=== PATIENT | female | born 1945 | race Caucasian/White ===

== ENCOUNTER 2016-12-16 20:39 | Emergency (ER) | payer MEDICARE ==
[~2016-12-16] VITALS: Ht 152.4 cm; Wt 70.8 kg
[~2016-12-16 20:39] MED LIST: BIOTIN1000 MCG PO; CITRACAL ULTRAD PO; CLARITIN10 MG PO; DUONEB 3 MG/3 ML3 M1 INH; EPIPEN 2-PAK1 MG/ML IJ; FISH OIL CONC1000 M1 PO; FLONASE ALLERG9.9 ML NAS; FOSAMAX10 MG PO; HCTZ/TRIAMTEREN1 CA2 PO; HYDROCHLOROTHIAZIDE PO; KEFLEX500 MG PO; LEVOFLOXACIN500 MG PO; LOVASTATIN40 MG PO; MEDROL DOSEPAK4 MG PO; NAPROXEN ER500 MG PO; NIACIN500 M1 PO; NORVASC5 MG PO; PRAVASTATIN SOD80 MG PO; PREDNISONE10 MG PO; PRILOSEC20 M1 PO; ROBITUSSIN AC 110 ML PO; TRAMADOL50 MG PO; TRIAMTERENE PO; VICODIN 5/500 505 MG PO; VITAMIN D1000 IU PO; VOLTAREN50 M1 PO; ZANTAC 150150 MG PO; ZOCOR40 MG PO
[2016-12-16 21:53] LABS: ALBUMIN 4.2 gm/dl (3.1-4.5); BILIRUBIN, TOTAL 0.7 mg/dl (0.2-1.0); POTASSIUM 2.9 mmol/L (3.5-5.1); TOTAL PROTEIN 7.7 gm/dL (6.4-8.2)
[2016-12-17] MEDS ORDERED: K-TAB20 MEQ PO (00:14)
== END 2016-12-17 00:51 | disposition home or self-care (01) ==
LOC: ED 20:39
PROVIDERS: Physician Assistant
DX: E87.6 Hypokalemia (principal); Z88.2 Allergy status to sulfonamides; Z79.899 Other long term (current) drug therapy

== ENCOUNTER 2017-10-11 17:34 | Inpatient (IN) | payer MEDICARE ==
[~2017-10-11] VITALS: Ht 152.4 cm; Wt 68.3 kg
--- NOTE | ~2017-10-11 | PR ---
[place], [place] PROGRESS NOTE [id number] UNIT #: [id number] ROOM: 402 DOCTOR: EMA MILLER MD BIRTHDATE: [birth year] DOS: 10/15/2017 SUBJECTIVE: The patient states that she feels better, who has a cough, but her shortness of breath is improved. OBJECTIVE: VITAL SIGNS: Graphic trend shows a pressure of 128/52, pulse is 62, respirations 18, temperature 98. LUNGS: Diminished breath sounds, clear. HEART: Regular. ABDOMEN: Obese, soft, nontender. EXTREMITIES: Without any edema. ASSESSMENT AND PLAN: 1. The patient who presents with increasing shortness of breath, was diagnosed with acute pneumonitis by Dr. Foster, was admitted. 2. Lactic acidosis, possibly early sepsis. Blood cultures have been negative. Sepsis has been ruled out. The patient is stable, can be discharged to home today. EMA MILLER MD CM:PNTRANS 1410 EMA MILLER MD 10/16/17 0108 interface
--- NOTE | ~2017-10-11 | DS ---
[place], [place] DISCHARGE SUMMARY [id number] UNIT #: [id number] ROOM: 402 DOCTOR: EMA MILLER MD BIRTHDATE: [birth year] DOS: 10/15/2017 DIAGNOSES: 1. Asthmatoid wheeze. 2. Sepsis, ruled out with negative cultures. 3. Pneumonitis. 4. Benign hypertension. 5. Type 2 diabetes mellitus. 6. Hyperlipidemia. 7. Chronic back pain. 8. Gastroesophageal reflux disease. DISCHARGE MEDICATIONS: Will be the same as on home medication. The new prescription added was Cipro 500 b.i.d. for 5 days and tapering dose of prednisone. HOSPITAL COURSE: The patient is 71-year-old. The patient was brought in under Dr. Foster's services with complaints of shortness of breath. Please refer H and P and the notes dictated by Dr. Foster for the last several days for details. The patient states this morning that she has improved. The cough is still persistent, but the shortness of breath has subsided and she no longer has a wheeze. Blood cultures and repeat chest x-ray have come back negative. The plan therefore is to discharge her to home for followup with Dr. Foster as an outpatient. Discharge prescriptions have been written. The patient is advised to take Mucinex at home for cough. EMA MILLER MD CM:DISCHARG [id number] EMA MILLER MD 10/15/17 2210 interface
--- NOTE | ~2017-10-11 | WRIGHTHP ---
[place], [place] PATIENT HISTORY AND PHYSICAL EXAM NAME: SEAN BANGURA [facility] #: [id number] UNIT #: [id number] ROOM: 4009 DOCTOR: DARIEN LAGUNA MD BIRTHDATE: [birth year] DOS: 10/11/2017 HISTORY OF PRESENT ILLNESS: The patient is a 71-year-old female with a past medical history of: 1. Benign essential hypertension. 2. Type 2 diabetes mellitus. 3. Mixed hyperlipidemia. 4. Chronic back pains. 5. GERD and esophagitis. HOSPITAL COURSE: The patient presented to [facility] with 2 weeks' complaints of increasing shortness of breath and cough and failed outpatient treatment. The patient says she was treated at an Center for these symptoms and now she is feeling quite weak and lethargic and tired and continues to cough and also has shortness of breath. The patient was admitted and still feeling sick, only slightly better. REVIEW OF SYSTEMS: LUNGS: Some shortness of breath and chest congestion. GASTROINTESTINAL: No nausea, vomiting, diarrhea, constipation. CARDIOVASCULAR: No chest pains or palpitations. PHYSICAL EXAMINATION: GENERAL: Alert and oriented x 3, in no visible distress. HEENT AND NECK: Exam within normal limits. CARDIOVASCULAR SYSTEM: Heart rate is regular in rate and rhythm. S1 and S2 normally audible. LUNGS: Slight scattered expiratory rhonchi. ABDOMEN: Soft, nontender. No obvious organomegaly. Bowel sounds are present. EXTREMITIES: Without significant cyanosis or edema. LABORATORY DATA: Normal serum electrolytes, bilirubin, liver enzymes. Lactic acid level elevated to 2.6. White cell count 11,200. IMPRESSION AND PLAN: 1. The patient with acute pneumonitis, asthmatoid wheezing, being treated with bronchodilators, corticosteroids, oxygen, and antibiotics. After admission, lactic acid level has returned to normal. The patient has been feeling sick for 2 weeks and has failed outpatient treatment. Chest x-ray without significant change. 2. Mixed hyperlipidemia. I will continue treatment with simvastatin. 3. Gastroesophageal reflux disease and esophagitis, asymptomatic with omeprazole. 4. Benign essential hypertension. I will continue her treatment and monitor blood pressures. 5. Type 2 diabetes mellitus with well controlled blood sugars. We will monitor blood sugars and look for hyperglycemia associated with use of corticosteroids. [place], [place] PATIENT HISTORY AND PHYSICAL EXAM NAME: SEAN BANGURA UNIT #: [id number] ROOM: 4009 DOCTOR: DARIEN LAGUNA MD BIRTHDATE: [birth year] DARIEN LAGUNA MD CM:HISPHYS:PATIENT HISTORY AND PHYSICAL EXAMINATION [id number] [id number] DARIEN LAGUNA MD 10/12/17 1155 interface
--- NOTE | ~2017-10-11 | PR ---
[place], [place] PROGRESS NOTE [id number] UNIT #: [id number] ROOM: 4009 DOCTOR: DARIEN LAGUNA MD BIRTHDATE: [birth year] DOS: 10/14/2017 OBJECTIVE: VITAL SIGNS: Blood pressure 122/42, heart rate of 57 beats per minute, breathing normally, afebrile. GENERAL APPEARANCE: The patient is alert and oriented x 3, in no visible distress. HEENT AND NECK: Exam within normal limits. CARDIOVASCULAR SYSTEM: Heart rate is regular in rate and rhythm. S1 and S2 normally audible. LUNGS: Clear to auscultation. ABDOMEN: Soft, nontender. No obvious organomegaly. Bowel sounds are present. EXTREMITIES: Without significant cyanosis or edema. IMPRESSION AND PLAN: The patient continues to complain of nausea and I will give her Zofran for symptom relief. The patient says she does not feel good enough to go home yet. Acute pneumonitis, asthmatoid wheezing, being treated with corticosteroids, bronchodilators, oxygen, antibiotics and continues to improve. Mixed hyperlipidemia, being treated with simvastatin. Gastroesophageal reflux disease and esophagitis, treated with omeprazole. Benign essential hypertension, treated and controlled. Type 2 diabetes mellitus with some corticosteroid-induced hyperglycemia, being covered with insulin. Blood sugars are ranging between 160 to 250. DARIEN LAGUNA MD CM:PNTRANS [id number] DARIEN LAGUNA MD 10/14/17 1056 interface
--- NOTE | ~2017-10-11 | PR ---
[place], [place] PROGRESS NOTE [facility] [id number] UNIT #: [id number] ROOM: 4009 DOCTOR: DARIEN LAGUNA MD BIRTHDATE: [birth year] DOS: 10/13/2017 SUBJECTIVE: The patient is still feeling down and weak with some cough and chest congestion. PHYSICAL EXAMINATION: GENERAL APPEARANCE: The patient is alert and oriented x 3, in no visible distress. VITAL SIGNS: Blood pressure 128/54, heart rate of 62 beats per minute, breathing 18 times per minute, temperature 98.2 degrees Fahrenheit. HEENT AND NECK: Exam within normal limits. CARDIOVASCULAR SYSTEM: Heart rate is regular in rate and rhythm. S1 and S2 normally audible. LUNGS: Clear to auscultation. ABDOMEN: Soft, nontender. No obvious organomegaly. Bowel sounds are present. EXTREMITIES: Without significant cyanosis or edema. IMPRESSION: 1. The patient with acute pneumonitis, asthmatoid wheezing, being treated with bronchodilators and corticosteroids, oxygen, antibiotic and her breathing is improving slowly. 2. Failed outpatient treatment with chest congestion. Chest x-ray without acute abnormality. 3. Mixed hyperlipidemia treated with simvastatin. 4. Gastroesophageal reflux disease and esophagitis, asymptomatic with omeprazole. 5. Benign essential hypertension with ____ blood pressures. 6. Type 2 diabetes mellitus, being treated. 7. Corticosteroid-induced hyperglycemia being treated with regular insulin sliding scale. DARIEN LAGUNA MD CM:PNTRANS 1602 23 DARIEN LAGUNA MD 10/13/172223 interface
[~2017-10-11 17:34] MED LIST changes: +K-TAB20 MEQ PO
[2017-10-11 17:54] VITALS: BP 132/80
[2017-10-11 18:52] LABS: BASO # 0.1 10*3/uL (0.0-0.1); BASO % 0.5 % (0.0-1.0); EOS # 0.4 10*3/uL (0.0-0.4); EOS % 3.4 % (1.0-4.0); HEMATOCRIT 36.3 % (37.0-47.0); HEMOGLOBIN 12.2 g/dl (12.0-16.0); LYMPH # 2.4 10*3/uL (1.3-4.4); LYMPH % 21.5 % (27.0-41.0); MEAN CELL VOLUME 92.6 fl (81.0-99.0); MEAN CORPUSCULAR HGB 31.1 pg (27.0-31.0); MEAN CORPUSCULAR HGB CONC 33.6 g/dl (33.0-37.0); MEAN PLATELET VOLUME 9.7 fl (9.6-12.3); MONO # 1.1 10*3/uL (0.1-1.0); MONO % 9.4 % (3.0-9.0); NEUT # 7.2 10*3/uL (2.3-7.9); NEUT % 64.6 % (47.0-73.0); PLATELET COUNT AUTOMATED 222 10*3/uL (130-400); RED BLOOD COUNT 3.92 10*6/uL (4.10-5.10); RED CELL DISTRI WIDTH 13.2 % (0-14.5); WHITE BLOOD COUNT 11.2 10*3/uL (4.8-10.8)
[2017-10-11 19:06] LABS: ALBUMIN 3.7 gm/dl (3.1-4.5); ALKALINE PHOSPHATASE 83 U/L (45-117); BUN 16 mg/dl (7-24); CHLORIDE 101 mmol/L (98-107); CREATININE 0.95 mg/dL (0.55-1.02); POTASSIUM 3.7 mmol/L (3.5-5.1); SGOT/AST 14 IU/L (3-35); SGPT/ALT 18 U/L (12-78); SODIUM 139 mmol/L (136-145); TOTAL PROTEIN 7.5 gm/dL (6.4-8.2)
[2017-10-11 19:13] VITALS: BP 129/50
[2017-10-11 20:12] VITALS: BP 119/59
[2017-10-11 20:16] VITALS: BP 147/57
[2017-10-11] MEDS ORDERED: OMEPRAZOLE40 MG PO (20:39)
[2017-10-11] MEDS ORDERED: METFORMIN1000 MG PO (20:40)
[2017-10-11] MEDS ORDERED: TRIAMTERENE & H1 CAP PO (23:13)
[2017-10-12] VITALS: BP 118/38
[2017-10-12 08:00] VITALS: BP 140/52
[2017-10-12 16:00] VITALS: BP 126/52
[2017-10-13] VITALS: BP 115/43
[2017-10-13 08:00] VITALS: BP 128/54
[2017-10-13 16:00] VITALS: BP 116/53
[2017-10-14] VITALS: BP 103/38
[2017-10-14 08:00] VITALS: BP 123/42
[2017-10-14 16:00] VITALS: BP 119/43
[2017-10-14 20:00] VITALS: BP 124/45
[2017-10-15] VITALS: BP 102/48
[2017-10-15 08:00] VITALS: BP 128/52
[2017-10-15] MEDS ORDERED: CIPRO500 MG PO (14:17)
[2017-10-15] MEDS ORDERED: PREDNISONE5 MG PO (14:17)
[2017-10-15] MEDS ORDERED: GUAIFENESIN600 MG PO (14:20)
== END 2017-10-15 16:13 | disposition home or self-care (01) | DRG 194 ==
LOC: ED 17:34 → 4NE 19:52 → EDHOLD 19:52 → 4NE 19:55 → 4E 19:56 → 4NE 20:00 → 4E 10-14 14:10
PROVIDERS: Emergency Medicine
DX: J18.9 Pneumonia, unspecified organism (principal); E87.2 Acidosis; E11.65 Type 2 diabetes mellitus with hyperglycemia; I10 Essential (primary) hypertension; K21.0 Gastro-esophageal reflux disease with esophagitis; E78.2 Mixed hyperlipidemia; G89.29 Other chronic pain; M54.9 Dorsalgia, unspecified; T38.0X5A Adverse effect of glucocorticoids and synthetic analogues, initial encounter; Z88.2 Allergy status to sulfonamides; Z79.899 Other long term (current) drug therapy; Z90.49 Acquired absence of other specified parts of digestive tract; Z90.710 Acquired absence of both cervix and uterus; Z98.51 Tubal ligation status; Z83.3 Family history of diabetes mellitus; Y92.89 Other specified places as the place of occurrence of the external cause

== ENCOUNTER → 2018-09-14 | Outpatient (CLI) | payer MEDICARE ==
[~2018-09-14] MED LIST changes: +CIPRO500 MG PO; +GUAIFENESIN600 MG PO; +METFORMIN1000 MG PO; +OMEPRAZOLE40 MG PO; +PREDNISONE5 MG PO; +TRIAMTERENE & H1 CAP PO
== END | disposition home or self-care (01) ==
LOC: MAMMO 14:12
DX: Z12.31 Encounter for screening mammogram for malignant neoplasm of breast (principal); R92.8 Other abnormal and inconclusive findings on diagnostic imaging of breast

== ENCOUNTER 2018-10-12 13:24 | Emergency (ER) | payer MEDICARE ==
[~2018-10-12] VITALS: Wt 70.8 kg
[~2018-10-12 13:24] MED LIST changes: +OMNICEF300 MG PO; +PREDNISONE50 MG PO
[2018-10-12 14:34] LABS: BASO % 0.2 % (0.0-1.0); EOS % 0.3 % (1.0-4.0); HEMATOCRIT 38.5 % (37.0-47.0); LYMPH # 1.1 10*3/uL (1.3-4.4); LYMPH % 11.3 % (27.0-41.0); MEAN CELL VOLUME 96.7 fl (81.0-99.0); MEAN CORPUSCULAR HGB 32.7 pg (27.0-31.0); MEAN CORPUSCULAR HGB CONC 33.8 g/dl (33.0-37.0); MEAN PLATELET VOLUME 9.7 fl (9.6-12.3); MONO # 0.2 10*3/uL (0.1-1.0); MONO % 2.1 % (3.0-9.0); NEUT # 8.4 10*3/uL (2.3-7.9); NEUT % 85.1 % (47.0-73.0); PLATELET COUNT AUTOMATED 256 10*3/uL (130-400); RED BLOOD COUNT 3.98 10*6/uL (4.10-5.10); RED CELL DISTRI WIDTH 13.3 % (0-14.5); WHITE BLOOD COUNT 9.8 10*3/uL (4.8-10.8)
[2018-10-12 14:48] LABS: CREATININE 1.18 mg/dL (0.55-1.02); TOTAL PROTEIN 7.4 gm/dL (6.4-8.2)
== END 2018-10-12 16:04 | disposition home or self-care (01) ==
LOC: ED 13:24
PROVIDERS: Physician Assistant
DX: E11.65 Type 2 diabetes mellitus with hyperglycemia (principal); Z88.2 Allergy status to sulfonamides; Z79.2 Long term (current) use of antibiotics; Z79.899 Other long term (current) drug therapy; Z79.84 Long term (current) use of oral hypoglycemic drugs; Z90.49 Acquired absence of other specified parts of digestive tract

== ENCOUNTER → 2019-06-29 | Outpatient (CLI) | payer MEDICARE ==
[~2019-06-29] MED LIST changes: +LOSARTAN POTASS25 M1 PO; +TRIAMTERENE-HC1 EACH PO
== END | disposition home or self-care (01) ==
LOC: CT 13:00
DX: R09.81 Nasal congestion (principal)

== ENCOUNTER → 2019-07-03 | Outpatient (CLI) | payer MEDICARE ==
[2019-07-03 14:12] LABS: ALBUMIN 4.1 gm/dl (3.1-4.5); CREATININE 1.41 mg/dL (0.55-1.02); FREE T4 0.98 ng/dl (0.76-1.46); POTASSIUM 3.4 mmol/L (3.5-5.1); TOTAL PROTEIN 7.7 gm/dL (6.4-8.2)
[2019-07-03 14:18] LABS: THYROID STIM HORMONE (HS) 1.57 uIU/ml (0.358-4.75)
[2019-07-03 14:32] LABS: VITAMIN D, 25-HYDROXY 19.5 ng/mL (30-100)
[2019-07-03 15:10] LABS: BASO % 0.3 % (0.0-1.0); EOS # 0.1 10*3/uL (0.0-0.4); EOS % 0.8 % (1.0-4.0); HEMATOCRIT 44.2 % (37.0-47.0); HEMOGLOBIN 14.8 g/dl (12.0-16.0); LYMPH # 2.1 10*3/uL (1.3-4.4); LYMPH % 17.5 % (27.0-41.0); MEAN CELL VOLUME 96.1 fl (81.0-99.0); MEAN CORPUSCULAR HGB 32.2 pg (27.0-31.0); MEAN CORPUSCULAR HGB CONC 33.5 g/dl (33.0-37.0); MEAN PLATELET VOLUME 10.3 fl (9.6-12.3); NEUT # 8.7 10*3/uL (2.3-7.9); NEUT % 72.7 % (47.0-73.0); PLATELET COUNT AUTOMATED 294 10*3/uL (130-400); RED CELL DISTRI WIDTH 13.2 % (0-14.5); WHITE BLOOD COUNT 11.9 10*3/uL (4.8-10.8)
== END | disposition home or self-care (01) ==
LOC: LAB 13:01
PROVIDERS: Internal Medicine
DX: E11.9 Type 2 diabetes mellitus without complications (principal); E78.2 Mixed hyperlipidemia; I10 Essential (primary) hypertension; E55.9 Vitamin D deficiency, unspecified; D51.9 Vitamin B12 deficiency anemia, unspecified; D52.9 Folate deficiency anemia, unspecified

== ENCOUNTER 2019-09-26 17:06 | Emergency (ER) | payer MEDICARE ==
[~2019-09-26] VITALS: Ht 152.4 cm; Wt 70.3 kg
[2019-09-26 17:26] LABS: BASO % 0.4 % (0.0-1.0); EOS # 0.2 10*3/uL (0.0-0.4); EOS % 2.6 % (1.0-4.0); HEMATOCRIT 37.7 % (37.0-47.0); HEMOGLOBIN 12.8 g/dl (12.0-16.0); LYMPH # 2.7 10*3/uL (1.3-4.4); LYMPH % 47.2 % (27.0-41.0); MEAN CELL VOLUME 94.3 fl (81.0-99.0); MEAN PLATELET VOLUME 9.6 fl (9.6-12.3); MONO # 0.5 10*3/uL (0.1-1.0); MONO % 8.6 % (3.0-9.0); NEUT # 2.3 10*3/uL (2.3-7.9); NEUT % 40.8 % (47.0-73.0); PLATELET COUNT AUTOMATED 199 10*3/uL (130-400); RED CELL DISTRI WIDTH 13.5 % (0-14.5); WHITE BLOOD COUNT 5.7 10*3/uL (4.8-10.8)
[2019-09-26 17:41] LABS: CREATININE 1.26 mg/dL (0.55-1.02); POTASSIUM 3.4 mmol/L (3.5-5.1); TOTAL PROTEIN 7.3 gm/dL (6.4-8.2)
[2019-09-26] MEDS ORDERED: PREDNISONE20 M1 PO (18:33)
[2019-09-26] MEDS ORDERED: TESSALON PERLE100 MG PO (18:33)
[2019-09-26] MEDS ORDERED: AVPAK AZITHROM250 MG PO (18:33)
== END 2019-09-26 18:50 | disposition home or self-care (01) ==
LOC: ED 17:06
PROVIDERS: Nurse Practitioner Family
DX: J20.9 Acute bronchitis, unspecified (principal); I10 Essential (primary) hypertension; E11.9 Type 2 diabetes mellitus without complications; E78.00 Pure hypercholesterolemia, unspecified; G89.29 Other chronic pain; Z88.2 Allergy status to sulfonamides; Z79.899 Other long term (current) drug therapy; Z90.49 Acquired absence of other specified parts of digestive tract; Z90.710 Acquired absence of both cervix and uterus

== ENCOUNTER 2020-05-04 10:01 | Emergency (ER) | payer MEDICARE ==
[~2020-05-04] VITALS: Ht 152.4 cm; Wt 68.0 kg
[~2020-05-04 10:01] MED LIST changes: +AVPAK AZITHROM250 MG PO; +PREDNISONE20 M1 PO; +TESSALON PERLE100 MG PO
[2020-05-04] MEDS ORDERED: CEPHALEXIN500 M1 PO (10:24)
== END 2020-05-04 10:37 | disposition home or self-care (01) ==
LOC: ED 10:01
DX: H57.89 Other specified disorders of eye and adnexa (principal); R09.81 Nasal congestion; I10 Essential (primary) hypertension; E11.9 Type 2 diabetes mellitus without complications; E78.00 Pure hypercholesterolemia, unspecified; Z79.899 Other long term (current) drug therapy; Z88.2 Allergy status to sulfonamides; Z88.8 Allergy status to other drugs, medicaments and biological substances

== ENCOUNTER 2020-05-26 09:30 | Inpatient (IN) | payer MEDICARE ==
[~2020-05-26] VITALS: Ht 152.4 cm; Wt 68.9 kg
[~2020-05-26 09:30] MED LIST changes: +BIOTIN1 M1 PO; -BIOTIN1000 MCG PO; +CEPHALEXIN500 M1 PO; -VITAMIN D1000 IU PO; +VITAMIN D350 MC2 PO
[2020-05-26 09:46] VITALS: BP 137/55
[2020-05-26 10:30] LABS: BASO % 0.5 % (0.0-1.0); EOS # 0.2 10*3/uL (0.0-0.4); EOS % 3.9 % (1.0-4.0); HEMATOCRIT 34.9 % (37.0-47.0); LYMPH # 1.1 10*3/uL (1.3-4.4); MEAN CELL VOLUME 92.8 fl (81.0-99.0); MEAN CORPUSCULAR HGB 31.1 pg (27.0-31.0); MEAN CORPUSCULAR HGB CONC 33.5 g/dl (33.0-37.0); MEAN PLATELET VOLUME 9.7 fl (9.6-12.3); MONO # 0.6 10*3/uL (0.1-1.0); MONO % 10.6 % (3.0-9.0); NEUT # 3.7 10*3/uL (2.3-7.9); NEUT % 65.5 % (47.0-73.0); PLATELET COUNT AUTOMATED 153 10*3/uL (130-400); RED BLOOD COUNT 3.76 10*6/uL (4.10-5.10); RED CELL DISTRI WIDTH 12.6 % (0-14.5); WHITE BLOOD COUNT 5.6 10*3/uL (4.8-10.8)
[2020-05-26 10:42] LABS: ACT PARTIAL THROMBO TIME 26.8 SECONDS (20.0-32.1)
[2020-05-26 10:47] LABS: ALKALINE PHOSPHATASE 228 U/L (45-117); BUN 12 mg/dl (7-24); CHLORIDE 101 mmol/L (98-107); CREATININE 0.91 mg/dL (0.55-1.02); LIPASE 465 U/L (73-393); POTASSIUM 3.3 mmol/L (3.5-5.1); SGOT/AST 88 IU/L (3-35); SGPT/ALT 105 U/L (12-78); SODIUM 136 mmol/L (136-145); TOTAL PROTEIN 6.2 gm/dL (6.4-8.2)
[2020-05-26 10:52] LABS: TROPONIN I < 0.015 ng/ml (<0.045)
[2020-05-26 11:06] LABS: BILIRUBIN NEGATIVE; BLOOD NEGATIVE (NEGATIVE); CLARITY SL CLOUDY (CLEAR); COLOR YELLOW (YELLOW); GLUCOSE 2+; KETONE 1+; LEUKO ESTERASE 1+ (NEGATIVE); NITRITE NEGATIVE (NEGATIVE); UROBILINOGEN 0.2 E.U./dl (0.2-1.0)
[2020-05-26 11:18] LABS: WBC 16-20 wbc/hpf (0-5)
[2020-05-26 11:19] LABS: BACTERIA 1+
[2020-05-26 13:30] VITALS: BP 135/62
--- NOTE | 2020-05-26 14:40 | NUR ---
Time: 1440 A 74 year old FEMALE admitted to under services of EMA CORDERO MD. Pt. arrived via bed from ER. Chief complaint: INITIALLY CAME IN TO ER WITH FEVER, BODY ACHES. HAD LABS DRAWN IN ER AND WAS DISCHARGED HOME. SHE WAS CALLED BACK IN TODAY WITH + BLOOD CULTURES. HENRI REID
[2020-05-26 16:00] VITALS: BP 109/43
[2020-05-26] MEDS ORDERED: TOPROL XL25 MG PO (16:31)
[2020-05-26] MEDS ORDERED: Meclizine25 MG PO (16:32)
[2020-05-26] MEDS ORDERED: DYAZIDE 37.5-21 EACH PO (16:33)
--- NOTE | 2020-05-26 17:15 | NUR ---
Patient resting quietly with no c/o discomfort. Respirations easy and regular. Vital signs stable. No overt distress. FANNY JOSE
[2020-05-26 20:00] VITALS: BP 118/50
--- NOTE | 2020-05-26 22:35 | NUR ---
REQUESTED AND RECEIVED TYLENOL PER PRN ORDER FOR COMPLAINTS OF HEADACHE RATING A 6. CALL LIGHT WITHIN REACH. WILL MONITOR
--- NOTE | 2020-05-26 22:58 | NUR ---
REQUESTED AND RECEIVED ANTIVERT PER PRN ORDER FOR COMPLAINTS OF DIZZINESS. WILL MONITOR
--- NOTE | 2020-05-26 23:30 | NUR ---
MEDS EFFECTIVE. SLEEPING. RESPIRATIONS EASY. IV FLUIDS MAINTAINED. CALL LIGHT WITHIN REACH
[2020-05-27] VITALS: BP 100/42
--- NOTE | 2020-05-27 00:15 | NUR ---
SLEEPING, NO DISTRESS NOTED. RESPIRATIONS EASY. VSS. IV FLUIDS MAINTAINED. CALL LIGHT WITHIN REACH
[2020-05-27 05:56] LABS: ALBUMIN 2.3 gm/dl (3.1-4.5); BILIRUBIN, DIRECT 0.5 mg/dL (0.0-0.2); TOTAL PROTEIN 5.5 gm/dL (6.4-8.2)
--- NOTE | 2020-05-27 06:00 | NUR ---
SLEPT THROUGHOUT NIGHT WITH NO DISTRESS NOTED. RESPIRATIONS EASY. IV FLUIDS MAINTAINED. CALL LIGHT WITHIN REACH. NO VOICED COMPLAINTS THIS SHIFT
[2020-05-27 08:00] VITALS: BP 120/54
--- NOTE | 2020-05-27 09:00 | NUR ---
Body Shop Technician in to talk to patient. Patient states lives at home with her . There are 14 steps in the home. Physician: Dr. Mike Foster [facility] services: none Patient's level of ADLs: INDEPENDENT Patient has working utilities: yes DME: none Follow-up physician's appointment after d/c: she prefers to make her own follow up appt after discharge Does patient want to access PORTAL?: no Discharge plan discussed with patient. She lives at home with her . She states she is independent in her ADLs and ambulation. She works at [employer]. Discussed home health care services and she declines. CM will continue to follow for any discharge planning needs. When medically stable she will be discharged to home. She states her will provide transportation on discharge. JAMESON CAI
--- NOTE | 2020-05-27 10:17 | NUR ---
patient refused echo. stted she had one done recently.
--- NOTE | 2020-05-27 11:00 | NUR ---
SPOKE WITH & RECEIVED ORDER FOR SOLID DIET.
[2020-05-27 12:00] VITALS: BP 128/44
--- NOTE | 2020-05-27 15:29 | NUR ---
PATIENT STATES THAT SHE IS FEELING OK RIGHT NOW. CALL LIGHT IS WITHIN REACH.
[2020-05-27 16:00] VITALS: BP 100/54
--- NOTE | 2020-05-27 19:36 | NUR ---
24 HR chart check completed.
[2020-05-27 20:00] VITALS: BP 109/31; BP 110/50
--- NOTE | 2020-05-27 20:15 | NUR ---
RESTING IN BED. NO ACUTE DISTRESS NOTED. RESPIRATIONS EASY. LUNGS DIMINISHED, CLEAR. PULSE OX 97% RA. ABD SOFT WITH HYPER BOWEL SOUNDS, C/O DIARRHEA. IV FLUIDS INFUSING PER ORDER. CALL LIGHT WITHIN REACH.
--- NOTE | 2020-05-27 20:45 | NUR ---
REQUESTED AND RECEIVED ANTIVERT AND TYLENOL PER PRN ORDER FOR COMPLAINTS OF DIZZINESS AND HEADACHE RATING A 5. CALL LIGHT WITHIN REACH. WILL MONITOR
--- NOTE | 2020-05-27 21:30 | NUR ---
EARLIER MEDS APPEAR EFFECTIVE. RESTING WITH EYES CLOSED. RESPIRATIONS EASY. IV FLUIDS MAINTAINED. CALL LIGHT WITHIN REACH.
[2020-05-28] VITALS: BP 101/41
--- NOTE | 2020-05-28 | NUR ---
SLEEPING. NO DISTRESS NOTED. RESPIRATIONS EASY. VSS. IV FLUIDS MAINTAINED. CALL LIGHT WITHIN REACH
--- NOTE | 2020-05-28 06:00 | NUR ---
SLEPT THROUGHOUT NIGHT WITH NO DISTRESS NOTED. RESPIRATIONS EASY. IV FLUIDS MAINTAINED. CALL LIGHT WITHIN REACH. NO VOICED COMPLAINTS THIS SHIFT
[2020-05-28 07:08] LABS: BASO % 0.6 % (0.0-1.0); EOS # 0.5 10*3/uL (0.0-0.4); EOS % 9.2 % (1.0-4.0); LYMPH # 1.4 10*3/uL (1.3-4.4); LYMPH % 27.8 % (27.0-41.0); MEAN CORPUSCULAR HGB 31.7 pg (27.0-31.0); MEAN CORPUSCULAR HGB CONC 32.4 g/dl (33.0-37.0); MEAN PLATELET VOLUME 9.5 fl (9.6-12.3); MONO # 0.5 10*3/uL (0.1-1.0); MONO % 10.8 % (3.0-9.0); NEUT # 2.5 10*3/uL (2.3-7.9); NEUT % 50.6 % (47.0-73.0); PLATELET COUNT AUTOMATED 151 10*3/uL (130-400); RED BLOOD COUNT 3.38 10*6/uL (4.10-5.10); RED CELL DISTRI WIDTH 13.2 % (0-14.5); WHITE BLOOD COUNT 4.9 10*3/uL (4.8-10.8)
[2020-05-28 07:14] LABS: MEAN CELL VOLUME 97.6 fl (81.0-99.0)
[2020-05-28 07:27] LABS: ALBUMIN 2.6 gm/dl (3.1-4.5); ALKALINE PHOSPHATASE 248 U/L (45-117); BUN 7 mg/dl (7-24); CHLORIDE 115 mmol/L (98-107); POTASSIUM 3.9 mmol/L (3.5-5.1); SGOT/AST 59 IU/L (3-35); SGPT/ALT 73 U/L (12-78); SODIUM 144 mmol/L (136-145); TOTAL PROTEIN 5.9 gm/dL (6.4-8.2)
[2020-05-28 08:00] VITALS: BP 134/62
--- NOTE | 2020-05-28 09:00 | NUR ---
CM in to see patient. No new needs or request at this time. Discussed home health care services and she declines. CM will continue to follow for any discharge planning needs. When medically stable she will be discharged to home.
[2020-05-28 12:00] VITALS: BP 130/40
--- NOTE | 2020-05-28 15:47 | NUR ---
MEDICATED WITH PRN TYLENOL PER ORDER AND REQUEST.
[2020-05-28 16:00] VITALS: BP 101/53
--- NOTE | 2020-05-28 19:30 | NUR ---
PATIENT VOICES NO CONERNS AT THIS TIME. CALL LIGHT IN REACH. ASSESSMENT COMPLETE.
[2020-05-28 20:00] VITALS: BP 113/46
--- NOTE | 2020-05-28 21:53 | NUR ---
MEDICATED WITH PRN ANTIVERT PER PATIENT REQUEST FOR CO DIZZYNESS. WILL ASSESS EFFECTIVNESS.
--- NOTE | 2020-05-28 22:53 | NUR ---
ANTIVERT EFFECTIVE PER PATIENT.
[2020-05-29] VITALS: BP 129/43
--- NOTE | 2020-05-29 01:54 | NUR ---
24 HR chart check completed.
--- NOTE | 2020-05-29 03:32 | NUR ---
MEDICATED WITH PRN TYLENOL PER PATIENT REQUEST FOR CO A HEADACHE.
--- NOTE | 2020-05-29 04:32 | NUR ---
TYLENOL EFFECTIVE PER PATIENT
--- NOTE | 2020-05-29 07:30 | NUR ---
patient refusing echo again. States that she has already had 2 and does not know if her insurance will pay for another.
[2020-05-29 08:00] VITALS: BP 123/57
[2020-05-29 12:00] VITALS: BP 122/90
--- NOTE | 2020-05-29 14:55 | NUR ---
PLEASE FILL OUT SCRIPT FOR MAMMOGRAM.
[2020-05-29 16:00] VITALS: BP 129/50
--- NOTE | 2020-05-29 19:30 | NUR ---
PATIENT RESTING IN BED. VOICES NO CONCERNS. ASSESSMENT COMPLETE. RESPS ERND. CALL LIGHT IN REACH.
[2020-05-29 20:00] VITALS: BP 122/47
--- NOTE | 2020-05-29 22:23 | NUR ---
24 HR chart check completed.
[2020-05-30] VITALS: BP 120/44
[2020-05-30 06:24] LABS: ALBUMIN 2.6 gm/dl (3.1-4.5); BUN 8 mg/dl (7-24); CHLORIDE 111 mmol/L (98-107); CREATININE 0.84 mg/dL (0.55-1.02); POTASSIUM 4.1 mmol/L (3.5-5.1); SGOT/AST 21 IU/L (3-35); SGPT/ALT 42 U/L (12-78); SODIUM 144 mmol/L (136-145)
[2020-05-30 06:26] LABS: ALKALINE PHOSPHATASE 201 U/L (45-117); TOTAL PROTEIN 5.7 gm/dL (6.4-8.2)
[2020-05-30 06:32] LABS: BASO # 0.1 10*3/uL (0.0-0.1); BASO % 0.8 % (0.0-1.0); EOS # 0.5 10*3/uL (0.0-0.4); EOS % 8.4 % (1.0-4.0); HEMATOCRIT 33.3 % (37.0-47.0); LYMPH % 32.1 % (27.0-41.0); MEAN CELL VOLUME 98.5 fl (81.0-99.0); MEAN CORPUSCULAR HGB 31.7 pg (27.0-31.0); MEAN CORPUSCULAR HGB CONC 32.1 g/dl (33.0-37.0); MEAN PLATELET VOLUME 9.8 fl (9.6-12.3); MONO # 0.6 10*3/uL (0.1-1.0); MONO % 9.3 % (3.0-9.0); NEUT # 2.9 10*3/uL (2.3-7.9); NEUT % 47.3 % (47.0-73.0); RED BLOOD COUNT 3.38 10*6/uL (4.10-5.10); RED CELL DISTRI WIDTH 13.3 % (0-14.5); WHITE BLOOD COUNT 6.1 10*3/uL (4.8-10.8)
[2020-05-30 06:40] LABS: PLATELET COUNT AUTOMATED 212 10*3/uL (130-400)
[2020-05-30 08:00] VITALS: BP 135/54
--- NOTE | 2020-05-30 09:14 | NUR ---
PT SITTING UP IN BED EATING BREAKFAST. VSS. DENIES PAIN OR ANY NEEDS AT THIS TIME. WILL CONTINUE TO MONITOR.
[2020-05-30 13:00] VITALS: BP 140/80
--- NOTE | 2020-05-30 13:29 | NUR ---
DR. MACEDO'S OFFICE NOTIFED OF CONSULT.
[2020-05-30 15:00] VITALS: BP 130/58
--- NOTE | 2020-05-30 19:30 | NUR ---
PATIENT RESTING IN BED. VOICES NO CONCERNS. PATIENT QUESTIONS ANSWERED. ASSESSMENT COMPLETE. VSS. RESPS EASY AND REGULAR. CALL LIGHT IN REACH. PATIENT WONDERING ABOUT ID. FLORENCE JAMES SUPPOSED TO SEE PATIENT TOMORROW.
[2020-05-30 20:00] VITALS: BP 142/59
--- NOTE | 2020-05-30 22:18 | NUR ---
24 HR chart check completed.
[2020-05-31] VITALS: BP 126/44
[2020-05-31 08:00] VITALS: BP 155/67
[2020-05-31 12:00] VITALS: BP 119/67
--- NOTE | 2020-05-31 13:54 | NUR ---
IN TO SEE PATIENT.
[2020-05-31] MEDS ORDERED: AUGMENTIN 875-875 MG PO (14:10)
--- NOTE | 2020-05-31 14:51 | NUR ---
ID CALLED REGARDING DISCHARGE. AWAITING RETURN PHONE CALL.
--- NOTE | 2020-05-31 15:50 | NUR ---
FLORENCE JAMES IN TO SEE PATIENT
[2020-05-31 16:00] VITALS: BP 122/67
--- NOTE | 2020-05-31 16:14 | NUR ---
FLORENCE JAMES SAID OK TO HAVE PATIENT GO HOME, WILL SEND HER WITH ANTIBIOTICS PO. DISCUSSED THIS WITH THE PATIENT, SHE AGREES WITH THIS.
--- NOTE | 2020-05-31 16:28 | NUR ---
WENT OVER DISCHARGE INSTRUCTIONS WITH THE PATIENT, SHE HAS NO QUESTIONS AT THIS TIME. IV TAKEN OUT. WILL WAIT FOR RIDE TO BE HERE AND WILL HELP OUT WITH BELONGINGS
--- NOTE | 2020-05-31 16:31 | NUR ---
PT LEAVING FLOOR AT THIS TIME WITH ALL OF HER BELONGINGS
== END 2020-05-31 16:28 | disposition home or self-care (01) | DRG 871 ==
LOC: ED 09:30 → EDHOLD 13:40 → 4E 13:40
PROVIDERS: Internal Medicine; Nurse Practitioner Family; ADMIT Internal Medicine; ATTEND Internal Medicine
DX: A41.51 Sepsis due to Escherichia coli [E. coli] (principal); N17.0 Acute kidney failure with tubular necrosis; A04.72 Enterocolitis due to Clostridium difficile, not specified as recurrent; E44.0 Moderate protein-calorie malnutrition; I10 Essential (primary) hypertension; R74.0 Nonspecific elevation of levels of transaminase and lactic acid dehydrogenase [LDH]; E87.6 Hypokalemia; M47.816 Spondylosis without myelopathy or radiculopathy, lumbar region; K21.0 Gastro-esophageal reflux disease with esophagitis; H81.09 Meniere's disease, unspecified ear; Z20.828 Contact with and (suspected) exposure to other viral communicable diseases; E78.2 Mixed hyperlipidemia; E11.9 Type 2 diabetes mellitus without complications; G89.29 Other chronic pain; M54.5 Low back pain; K21.9 Gastro-esophageal reflux disease without esophagitis; Z80.3 Family history of malignant neoplasm of breast; Z88.2 Allergy status to sulfonamides; Z88.8 Allergy status to other drugs, medicaments and biological substances; Z83.3 Family history of diabetes mellitus; Z79.899 Other long term (current) drug therapy; N18.3 Chronic kidney disease, stage 3 (moderate)

== ENCOUNTER → 2020-06-24 | Outpatient (CLI) | payer MEDICARE ==
[~2020-06-24] MED LIST changes: +AUGMENTIN 875-875 MG PO; +DYAZIDE 37.5-21 EACH PO; +Meclizine25 MG PO; +TOPROL XL25 MG PO
== END | disposition home or self-care (01) ==
LOC: MAMMO 13:58
PROVIDERS: ATTEND Internal Medicine
DX: R92.8 Other abnormal and inconclusive findings on diagnostic imaging of breast (principal)

== ENCOUNTER → 2020-11-06 | Outpatient (CLI) | payer MEDICARE ==
[~2020-11-06] MED LIST changes: +ASPIRIN ADULT L81 M1 PO; +BYDUREON P2 MG/0.65 SQ; +COZAAR25 M1 PO; +ROSUVASTATIN CA40 MG PO
== END | disposition home or self-care (01) ==
LOC: COVID19 15:16
PROVIDERS: ATTEND Internal Medicine
DX: Z20.822 Contact with and (suspected) exposure to COVID-19 (principal)

== ENCOUNTER 2020-12-09 10:23 | Inpatient (IN) | payer MEDICARE ==
[~2020-12-09] VITALS: Ht 152.4 cm; Wt 65.1 kg
[~2020-12-09 10:23] MED LIST changes: -ASPIRIN ADULT L81 M1 PO; -BYDUREON P2 MG/0.65 SQ; -COZAAR25 M1 PO; -ROSUVASTATIN CA40 MG PO
[2020-12-09 10:32] VITALS: BP 112/78
[2020-12-09 11:06] LABS: BASO # 0.1 10*3/uL (0.0-0.1); BASO % 0.8 % (0.0-1.0); EOS # 0.2 10*3/uL (0.0-0.4); EOS % 3.1 % (1.0-4.0); HEMATOCRIT 42.1 % (37.0-47.0); LYMPH % 32.3 % (27.0-41.0); MEAN CELL VOLUME 90.1 fl (81.0-99.0); MEAN CORPUSCULAR HGB CONC 34.4 g/dl (33.0-37.0); MEAN PLATELET VOLUME 9.8 fl (9.6-12.3); MONO # 0.6 10*3/uL (0.1-1.0); MONO % 9.5 % (3.0-9.0); NEUT # 3.4 10*3/uL (2.3-7.9); NEUT % 54.1 % (47.0-73.0); PLATELET COUNT AUTOMATED 234 10*3/uL (130-400); RED BLOOD COUNT 4.67 10*6/uL (4.10-5.10); RED CELL DISTRI WIDTH 12.9 % (0-14.5); WHITE BLOOD COUNT 6.2 10*3/uL (4.8-10.8)
[2020-12-09 11:15] VITALS: BP 107/58
[2020-12-09 11:20] LABS: ACT PARTIAL THROMBO TIME 25.4 SECONDS (20.0-32.1)
[2020-12-09 11:22] LABS: ALBUMIN 4.1 gm/dl (3.1-4.5); ALKALINE PHOSPHATASE 80 U/L (45-117); BUN 17 mg/dl (7-24); CHLORIDE 100 mmol/L (98-107); CREATININE 1.67 mg/dL (0.55-1.02); LIPASE 193 U/L (73-393); POTASSIUM 2.9 mmol/L (3.5-5.1); SGOT/AST 17 IU/L (3-35); SGPT/ALT 28 U/L (12-78); SODIUM 138 mmol/L (136-145); TOTAL PROTEIN 7.6 gm/dL (6.4-8.2)
[2020-12-09 11:27] LABS: TROPONIN I < 0.015 ng/ml (<0.045)
[2020-12-09 11:45] LABS: BILIRUBIN Negative (Negative); BLOOD 2+ (Negative); CLARITY Turbid (Clear); COLOR Yellow (Yellow); GLUCOSE 1+ (Negative); KETONE 1+ (Negative); LEUKO ESTERASE 1+ (Negative); NITRITE Negative (Negative); PH 5.5 (4.5-8.0); SPECIFIC GRAVITY 1.015 (1.001-1.030); UROBILINOGEN 0.2 E.U./dl (0.0-1.0)
[2020-12-09 12:03] LABS: BACTERIA 3+; COARSE GRANULAR CAST TNTC; EPITHELIAL CELLS 21-30; RBC TNTC rbc/hpf (0-2); WBC 41-50 wbc/hpf (0-5)
[2020-12-09] MEDS ORDERED: BYDUREON P2 MG/0.65 SQ (13:18)
[2020-12-09] MEDS ORDERED: ROSUVASTATIN CA40 MG PO (13:19)
[2020-12-09] MEDS ORDERED: ASPIRIN ADULT L81 M1 PO (13:20)
[2020-12-09 14:54] VITALS: BP 101/45
[2020-12-09 15:42] VITALS: BP 102/47
[2020-12-09 15:53] VITALS: BP 11/50; BP 111/50
[2020-12-09 20:00] VITALS: BP 112/54
[2020-12-10] VITALS: BP 109/46
[2020-12-10 06:42] LABS: CREATININE 1.47 mg/dL (0.55-1.02); POTASSIUM 3.6 mmol/L (3.5-5.1)
[2020-12-10 06:50] LABS: BASO # 0.1 10*3/uL (0.0-0.1); EOS # 0.3 10*3/uL (0.0-0.4); EOS % 5.7 % (1.0-4.0); HEMATOCRIT 36.8 % (37.0-47.0); LYMPH # 2.3 10*3/uL (1.3-4.4); LYMPH % 40.4 % (27.0-41.0); MEAN CORPUSCULAR HGB 30.4 pg (27.0-31.0); MEAN CORPUSCULAR HGB CONC 32.3 g/dl (33.0-37.0); MEAN PLATELET VOLUME 10.2 fl (9.6-12.3); MONO # 0.7 10*3/uL (0.1-1.0); MONO % 11.2 % (3.0-9.0); NEUT # 2.4 10*3/uL (2.3-7.9); NEUT % 41.5 % (47.0-73.0); PLATELET COUNT AUTOMATED 194 10*3/uL (130-400); RED BLOOD COUNT 3.91 10*6/uL (4.10-5.10); RED CELL DISTRI WIDTH 13.2 % (0-14.5); WHITE BLOOD COUNT 5.8 10*3/uL (4.8-10.8)
[2020-12-10 06:51] LABS: MEAN CELL VOLUME 94.1 fl (81.0-99.0)
[2020-12-10 08:00] VITALS: BP 110/70
[2020-12-10 18:53] VITALS: BP 126/60
[2020-12-10 20:43] VITALS: BP 118/51
[2020-12-11 00:35] VITALS: BP 96/50
[2020-12-11 06:47] LABS: BASO # 0.1 10*3/uL (0.0-0.1); BASO % 0.9 % (0.0-1.0); EOS # 0.4 10*3/uL (0.0-0.4); HEMATOCRIT 34.5 % (37.0-47.0); LYMPH % 37.2 % (27.0-41.0); MEAN CELL VOLUME 96.1 fl (81.0-99.0); MEAN CORPUSCULAR HGB 31.8 pg (27.0-31.0); MONO # 0.5 10*3/uL (0.1-1.0); MONO % 10.2 % (3.0-9.0); NEUT # 2.4 10*3/uL (2.3-7.9); NEUT % 44.7 % (47.0-73.0); PLATELET COUNT AUTOMATED 164 10*3/uL (130-400); RED BLOOD COUNT 3.59 10*6/uL (4.10-5.10); RED CELL DISTRI WIDTH 13.2 % (0-14.5); WHITE BLOOD COUNT 5.3 10*3/uL (4.8-10.8)
[2020-12-11 07:15] LABS: CREATININE 1.34 mg/dL (0.55-1.02); POTASSIUM 4.3 mmol/L (3.5-5.1)
[2020-12-11] MEDS ORDERED: COZAAR25 M1 PO (08:52)
== END 2020-12-11 11:45 | disposition home or self-care (01) | DRG 640 ==
LOC: ED 10:23 → EDHOLD 12:38 → 5E 12:38
PROVIDERS: Emergency Medicine; ADMIT Internal Medicine; ATTEND Internal Medicine
DX: E87.6 Hypokalemia (principal); N17.0 Acute kidney failure with tubular necrosis; E86.0 Dehydration; E11.65 Type 2 diabetes mellitus with hyperglycemia; G89.29 Other chronic pain; M54.9 Dorsalgia, unspecified; K21.9 Gastro-esophageal reflux disease without esophagitis; E78.2 Mixed hyperlipidemia; I12.9 Hypertensive chronic kidney disease with stage 1 through stage 4 chronic kidney disease, or unspecified chronic kidney disease; E11.22 Type 2 diabetes mellitus with diabetic chronic kidney disease; N18.32 Chronic kidney disease, stage 3b; Z88.2 Allergy status to sulfonamides; Z88.8 Allergy status to other drugs, medicaments and biological substances; Z90.710 Acquired absence of both cervix and uterus; Z79.84 Long term (current) use of oral hypoglycemic drugs; Z79.899 Other long term (current) drug therapy

== ENCOUNTER 2021-03-05 15:54 | Emergency (ER) | payer MEDICARE ==
[~2021-03-05 15:54] MED LIST changes: +ASPIRIN ADULT L81 M1 PO; +BYDUREON P2 MG/0.65 SQ; +COZAAR25 M1 PO; +ROSUVASTATIN CA40 MG PO
== END 2021-03-05 22:11 | disposition left against medical advice (07) ==
LOC: ED 15:54
DX: R07.81 Pleurodynia (principal); Z53.21 Procedure and treatment not carried out due to patient leaving prior to being seen by health care provider

== ENCOUNTER 2021-03-09 09:23 | Emergency (ER) | payer MEDICARE ==
[~2021-03-09] VITALS: Wt 62.6 kg
[2021-03-09] MEDS ORDERED: HYDROCODONE-AC1 EAC1 PO (12:27)
== END 2021-03-09 12:37 | disposition home or self-care (01) ==
LOC: ED 09:23
DX: S22.32XA Fracture of one rib, left side, initial encounter for closed fracture (principal); Z88.2 Allergy status to sulfonamides; Z88.8 Allergy status to other drugs, medicaments and biological substances; Z79.899 Other long term (current) drug therapy; Z90.49 Acquired absence of other specified parts of digestive tract; Z90.711 Acquired absence of uterus with remaining cervical stump; X58.XXXA Exposure to other specified factors, initial encounter; Y93.89 Activity, other specified; Y92.89 Other specified places as the place of occurrence of the external cause; Y99.8 Other external cause status